=== PATIENT | female | born 1985 | race Caucasian/White ===

== ENCOUNTER → 2016-07-25 | Day surgery (SDC) | payer OTHER ==
[~2016-07-25] MED LIST: ALLEGRA ALLERG180 MG PO; AUGMENTIN TAB875 MG PO; BENTYL 20MG TAB20 MG PO; DIFLUCAN200 MG PO; DULERA 200 MCG8.8 GM INH; DYMISTA NASAL S23 GM; FLEXERIL 10 MG10 MG PO; LORTAB ELIXIR 715 ML PO; METFORMIN HCL1000 MG PO; NEURONTIN 300300 MG PO; NORCO 7.5-3251 EACH PO; PHENERGAN 25 MG25 M1 PO; PROPRANOLOL HCL20 MG PO; SINGULAIR10 MG PO; SPIRONOLACTONE100 MG PO; SULINDAC200 MG PO; VENTOLIN/PROVE0.5 ML INH
== END | disposition home or self-care (01) ==
LOC: OR 06:39
PROVIDERS: Otolaryngology
PROC: 099Q4ZZ Drainage of Right Maxillary Sinus, Percutaneous Endoscopic Approach (ICD-10-PCS; 2016-07-25)
PROC: 09BL4ZZ Excision of Nasal Turbinate, Percutaneous Endoscopic Approach (ICD-10-PCS; 2016-07-25)
PROC: 09SM0ZZ Reposition Nasal Septum, Open Approach (ICD-10-PCS; principal; 2016-07-25 11:15)
PROC: 09TU4ZZ Resection of Right Ethmoid Sinus, Percutaneous Endoscopic Approach (ICD-10-PCS; 2016-07-25 11:15)
PROC: 09TV4ZZ Resection of Left Ethmoid Sinus, Percutaneous Endoscopic Approach (ICD-10-PCS; 2016-07-25 11:15)
PROC: 099R4ZZ Drainage of Left Maxillary Sinus, Percutaneous Endoscopic Approach (ICD-10-PCS; 2016-07-25 11:15)
DX: J32.9 Chronic sinusitis, unspecified (principal); J34.2 Deviated nasal septum; J34.3 Hypertrophy of nasal turbinates; E66.9 Obesity, unspecified; J45.909 Unspecified asthma, uncomplicated; K21.9 Gastro-esophageal reflux disease without esophagitis; K76.0 Fatty (change of) liver, not elsewhere classified; E11.40 Type 2 diabetes mellitus with diabetic neuropathy, unspecified; G43.909 Migraine, unspecified, not intractable, without status migrainosus; M19.90 Unspecified osteoarthritis, unspecified site; Z98.818 Other dental procedure status; Z79.899 Other long term (current) drug therapy; Z79.82 Long term (current) use of aspirin; Z88.6 Allergy status to analgesic agent; Z87.19 Personal history of other diseases of the digestive system; Z82.49 Family history of ischemic heart disease and other diseases of the circulatory system; Z83.3 Family history of diabetes mellitus
CPT/HCPCS: 84703; C1726; J0171; J0295; J1100; J1642; J2405; J2710; J3010; J7050; J7120

== ENCOUNTER → 2016-08-01 | Outpatient (CLI) | payer OTHER | LOC: OPSV 08:30 | DX: Z45.89 Encounter for adjustment and management of other implanted devices (principal); D83.9 Common variable immunodeficiency, unspecified | CPT/HCPCS: 96365; 96366; J1561; J1642 ==

== ENCOUNTER → 2016-08-15 | Outpatient (CLI) | payer OTHER | LOC: OPSV 08:30 | DX: Z45.89 Encounter for adjustment and management of other implanted devices (principal); D83.9 Common variable immunodeficiency, unspecified | CPT/HCPCS: 96365; 96366; J1561; J1642 ==

== ENCOUNTER → 2016-08-29 | Outpatient (CLI) | payer OTHER ==
[~2016-08-29] VITALS: Ht 177.8 cm; Wt 166.5 kg
== END ==
LOC: OPSV 08:30
DX: Z45.89 Encounter for adjustment and management of other implanted devices (principal); D83.9 Common variable immunodeficiency, unspecified
CPT/HCPCS: 96365; 96366; J1561; J1642

== ENCOUNTER → 2016-09-12 | Outpatient (CLI) | payer OTHER ==
[~2016-09-12] VITALS: Ht 177.8 cm; Wt 166.5 kg
== END ==
LOC: OPSV 07:28
DX: Z45.89 Encounter for adjustment and management of other implanted devices (principal); D83.9 Common variable immunodeficiency, unspecified
CPT/HCPCS: 96365; 96366; J1568; J1572

== ENCOUNTER → 2016-09-26 | Outpatient (CLI) | payer OTHER ==
[~2016-09-26] VITALS: Ht 177.8 cm; Wt 166.5 kg
== END ==
LOC: OPSV 08:30
DX: Z45.89 Encounter for adjustment and management of other implanted devices (principal); D83.9 Common variable immunodeficiency, unspecified
CPT/HCPCS: 96365; 96366; J1568; J1642

== ENCOUNTER → 2016-10-10 | Outpatient (CLI) | payer OTHER ==
[~2016-10-10] VITALS: Ht 177.8 cm; Wt 166.5 kg
== END ==
LOC: OPSV 08:30
DX: D83.9 Common variable immunodeficiency, unspecified (principal)
CPT/HCPCS: 96365; 96366; J1568; J1642

== ENCOUNTER → 2016-10-25 | Outpatient (CLI) | payer OTHER ==
[~2016-10-25] VITALS: Ht 177.8 cm; Wt 166.5 kg
== END ==
LOC: OPSV 08:25
DX: D83.9 Common variable immunodeficiency, unspecified (principal)
CPT/HCPCS: 96365; 96366; J1568; J1642

== ENCOUNTER → 2016-11-05 | Outpatient (CLI) | payer OTHER | LOC: SLEEP 10:28 | DX: G47.33 Obstructive sleep apnea (adult) (pediatric) (principal) | CPT/HCPCS: 95810 ==

== ENCOUNTER → 2016-11-07 | Outpatient (CLI) | payer OTHER | LOC: OPSV 08:30 | DX: D83.9 Common variable immunodeficiency, unspecified (principal) | CPT/HCPCS: 96365; 96366; J1568; J1642 ==

== ENCOUNTER → 2016-11-21 | Outpatient (CLI) | payer MEDICARE, OTHER ==
[~2016-11-21] VITALS: Ht 177.8 cm; Wt 166.5 kg
== END ==
LOC: OPSV 08:28
DX: Z45.89 Encounter for adjustment and management of other implanted devices (principal); D83.9 Common variable immunodeficiency, unspecified
CPT/HCPCS: 96365; 96366; J1568; J1642

== ENCOUNTER → 2020-06-11 | Outpatient (CLI) | payer MEDICARE, OTHER ==
[~2020-06-11] VITALS: Ht 177.8 cm; Wt 183.7 kg
[~2020-06-11] MED LIST changes: +ZOFRAN4 MG PO
[2020-06-12 17:13] LABS: A/G RATIO 1.1 (0.7-1.7); ALBUMIN 2.2 g/dL (2.9-4.4); ALPHA-1-GLOBULIN 0.1 g/dL (0.0-0.4); ALPHA-2-GLOBULIN 0.7 g/dL (0.4-1.0); BETA GLOBULIN 0.7 g/dL (0.7-1.3); GAMMA GLOBULIN 0.6 g/dL (0.4-1.8); M-SPIKE Not Observed g/dL (Not Observed); PROTEIN, TOTAL, SERUM 4.2 g/dL (6.0-8.5)
== END ==
LOC: OPSV 08:51
PROVIDERS: Internal Medicine Pulmonary Disease
DX: R79.82 Elevated C-reactive protein (CRP) (principal); R70.0 Elevated erythrocyte sedimentation rate; D83.9 Common variable immunodeficiency, unspecified; E66.9 Obesity, unspecified
CPT/HCPCS: 36591; 83516; 83520; 83615; 84155; 84156; 84165; 84166; 84439; 84443; 85652; 86140; 86335; 96365; 96366; J1568; J1642

== ENCOUNTER → 2020-06-24 | Outpatient (CLI) | payer MEDICARE, OTHER ==
[~2020-06-24] VITALS: Ht 177.8 cm; Wt 183.7 kg
== END ==
LOC: OPSV 08:59
DX: D83.9 Common variable immunodeficiency, unspecified (principal)
CPT/HCPCS: 96365; 96366; 96375; J1568; J1642

== ENCOUNTER → 2020-07-07 | Outpatient (CLI) | payer MEDICARE ==
[~2020-07-07] VITALS: Ht 177.8 cm; Wt 183.7 kg
== END ==
LOC: OPSV 08:55
DX: D83.9 Common variable immunodeficiency, unspecified (principal)
CPT/HCPCS: 96365; 96366; 96375; J1568; J1642

== ENCOUNTER → 2020-07-21 | Outpatient (CLI) | payer MEDICARE ==
[~2020-07-21] VITALS: Ht 177.8 cm; Wt 183.7 kg
[2020-07-22 12:15] LABS: HBSAG SCREEN Negative (Negative); HCV AB <0.1 (0.0-0.9)
[2020-07-22 13:10] LABS: CREATININE, URINE 63.6 mg/dL (Not Estab.)
== END ==
LOC: OPSV 08:53
PROVIDERS: Internal Medicine
DX: R79.82 Elevated C-reactive protein (CRP) (principal); R70.0 Elevated erythrocyte sedimentation rate; D83.9 Common variable immunodeficiency, unspecified; R77.8 Other specified abnormalities of plasma proteins; Z11.59 Encounter for screening for other viral diseases
CPT/HCPCS: 36591; 80076; 82043; 82570; 82784; 83883; 84155; 84156; 84165; 86334; 86704; 86803; 87340; 96365; 96366; 96375; J1568; J1642

== ENCOUNTER → 2020-08-04 | Outpatient (CLI) | payer MEDICARE ==
[~2020-08-04] VITALS: Ht 177.8 cm; Wt 183.7 kg
== END ==
LOC: OPSV 09:00
DX: D83.9 Common variable immunodeficiency, unspecified (principal)
CPT/HCPCS: 96365; 96366; 96375; J1568; J1642

== ENCOUNTER → 2020-08-24 | Outpatient (CLI) | payer MEDICARE ==
[~2020-08-24] VITALS: Ht 177.8 cm; Wt 183.7 kg
== END ==
LOC: OPSV 08:52
DX: D83.9 Common variable immunodeficiency, unspecified (principal)
CPT/HCPCS: 96365; 96366; 96375; J1568; J1642

== ENCOUNTER → 2020-09-07 | Outpatient (CLI) | payer MEDICARE ==
[~2020-09-07] VITALS: Ht 177.8 cm; Wt 183.7 kg
== END ==
LOC: OPSV 08:46
DX: D83.9 Common variable immunodeficiency, unspecified (principal)
CPT/HCPCS: 96365; 96366; J1568; J1642

== ENCOUNTER → 2020-09-21 | Outpatient (CLI) | payer MEDICARE ==
[~2020-09-21] VITALS: Ht 177.8 cm; Wt 183.7 kg
== END ==
LOC: OPSV 09:00
DX: D83.9 Common variable immunodeficiency, unspecified (principal)
CPT/HCPCS: 96365; 96366; 96375; J1568; J1642

== ENCOUNTER → 2020-10-05 | Outpatient (CLI) | payer MEDICARE ==
[~2020-10-05] VITALS: Ht 177.8 cm; Wt 183.7 kg
== END ==
LOC: OPSV 09:00
DX: D83.9 Common variable immunodeficiency, unspecified (principal)
CPT/HCPCS: 96365; 96366; J1568; J1642

== ENCOUNTER → 2020-11-02 | Outpatient (CLI) | payer MEDICARE ==
[~2020-11-02] VITALS: Ht 177.8 cm; Wt 183.7 kg
== END ==
LOC: OPSV 08:29
DX: D83.9 Common variable immunodeficiency, unspecified (principal)
CPT/HCPCS: 96365; 96366; 96374; 96375; J1568; J1642

== ENCOUNTER → 2020-11-19 | Outpatient (CLI) | payer MEDICARE ==
[~2020-11-19] VITALS: Ht 177.8 cm; Wt 183.7 kg
== END ==
LOC: OPSV 07:54
DX: D83.9 Common variable immunodeficiency, unspecified (principal)
CPT/HCPCS: 96365; 96366; 96375; J1568

== ENCOUNTER → 2020-12-03 | Outpatient (CLI) | payer MEDICARE ==
[~2020-12-03] VITALS: Ht 177.8 cm; Wt 183.7 kg
== END ==
LOC: OPSV 07:59
DX: D83.9 Common variable immunodeficiency, unspecified (principal)
CPT/HCPCS: 96365; 96366; J1568; J1642

== ENCOUNTER → 2020-12-17 | Outpatient (CLI) | payer MEDICARE ==
[~2020-12-17] VITALS: Ht 177.8 cm; Wt 183.7 kg
== END ==
LOC: OPSV 08:00
DX: D83.9 Common variable immunodeficiency, unspecified (principal)
CPT/HCPCS: 96365; 96366; 96375; J1568; J1642

== ENCOUNTER → 2020-12-31 | Outpatient (CLI) | payer MEDICARE ==
[~2020-12-31] VITALS: Ht 177.8 cm; Wt 183.7 kg
== END ==
LOC: OPSV 08:00
DX: D83.9 Common variable immunodeficiency, unspecified (principal)
CPT/HCPCS: 96365; 96366; 96375; J1568; J1642

== ENCOUNTER → 2021-01-14 | Outpatient (CLI) | payer MEDICARE, OTHER ==
[~2021-01-14] VITALS: Ht 177.8 cm; Wt 183.7 kg
== END ==
LOC: OPSV 08:06
DX: D83.9 Common variable immunodeficiency, unspecified (principal)
CPT/HCPCS: 96365; 96366; J1568; J1642

== ENCOUNTER → 2021-01-28 | Outpatient (CLI) | payer MEDICARE ==
[~2021-01-28] VITALS: Ht 177.8 cm; Wt 183.7 kg
== END ==
LOC: OPSV 08:00
DX: D83.9 Common variable immunodeficiency, unspecified (principal)
CPT/HCPCS: 96365; 96366; 96375; J1568; J1642

== ENCOUNTER → 2021-02-11 | Outpatient (CLI) | payer MEDICARE, OTHER ==
[~2021-02-11] VITALS: Ht 177.8 cm; Wt 83.5 kg
== END ==
LOC: OPSV 08:00
DX: D83.9 Common variable immunodeficiency, unspecified (principal)
CPT/HCPCS: 96365; 96366; 96375; J1568; J1642

== ENCOUNTER → 2021-02-25 | Outpatient (CLI) | payer MEDICARE ==
[~2021-02-25] VITALS: Ht 177.8 cm; Wt 183.7 kg
== END ==
LOC: OPSV 08:00
DX: D83.9 Common variable immunodeficiency, unspecified (principal)
CPT/HCPCS: 96365; 96366; J1568; J1642

== ENCOUNTER → 2021-03-11 | Outpatient (CLI) | payer MEDICARE ==
[~2021-03-11] VITALS: Ht 177.8 cm; Wt 183.7 kg
== END ==
LOC: OPSV 07:57
DX: D83.9 Common variable immunodeficiency, unspecified (principal)
CPT/HCPCS: 96365; 96366; 96375; J1568; J1642

== ENCOUNTER → 2021-04-01 | Outpatient (CLI) | payer MEDICARE | LOC: OPSV 03-25 10:00 | DX: D83.9 Common variable immunodeficiency, unspecified (principal) | CPT/HCPCS: 96365; 96366; 96375; J1568; J1642 ==

== ENCOUNTER 2021-04-04 10:20 | Emergency (ER) | payer MEDICARE ==
[2021-04-04 11:39] LABS: HEMOGLOBIN 13.4 gm/dl (12.3-15.3); RED BLOOD COUNT 5.2 M/UL (4.00-5.10); WHITE BLOOD COUNT 9.7 K/UL (4.5-11.0)
[2021-04-04 11:50] LABS: BUN/CREATININE RATIO 21 (0-10)
== END 2021-04-04 15:13 | disposition home or self-care (01) ==
LOC: ER1 10:20
PROVIDERS: Emergency Medicine
DX: R56.9 Unspecified convulsions (principal); E66.01 Morbid (severe) obesity due to excess calories
CPT/HCPCS: 70450; 80053; 84703; 85025; 93005; 99285; J2550

== ENCOUNTER → 2021-04-15 | Outpatient (CLI) | payer MEDICARE | LOC: OPSV 07:56 | DX: D83.9 Common variable immunodeficiency, unspecified (principal) | CPT/HCPCS: 96365; 96366; J1568; J1642 ==

== ENCOUNTER → 2021-04-29 | Outpatient (CLI) | payer MEDICARE ==
[~2021-04-29] VITALS: Ht 177.8 cm; Wt 183.7 kg
== END ==
LOC: OPSV 08:00
DX: D83.9 Common variable immunodeficiency, unspecified (principal)
CPT/HCPCS: 96365; 96366; J1568; J1642

== ENCOUNTER → 2021-05-13 | Outpatient (CLI) | payer MEDICARE ==
[~2021-05-13] VITALS: Ht 177.8 cm; Wt 183.7 kg
== END ==
LOC: OPSV 08:00
DX: Z00.00 Encounter for general adult medical examination without abnormal findings (principal); D83.9 Common variable immunodeficiency, unspecified
CPT/HCPCS: 82565; 84520; 96365; 96366; 96375; J1568; J1642

== ENCOUNTER → 2021-05-26 | Outpatient (CLI) | payer MEDICARE ==
[~2021-05-26] VITALS: Ht 177.8 cm; Wt 183.7 kg
== END ==
LOC: OPSV 05-25 08:00
DX: D83.9 Common variable immunodeficiency, unspecified (principal)
CPT/HCPCS: 96365; 96366; J1568; J1642

== ENCOUNTER → 2021-06-10 | Outpatient (CLI) | payer MEDICARE | LOC: OPSV 08:17 | DX: D83.9 Common variable immunodeficiency, unspecified (principal) | CPT/HCPCS: 96365; 96366; J1568; J1642 ==

== ENCOUNTER → 2021-06-25 | Outpatient (CLI) | payer MEDICARE | LOC: OPSV 08:00 | DX: D83.9 Common variable immunodeficiency, unspecified (principal) | CPT/HCPCS: 96365; 96366; 96375; J1568; J1642 ==

== ENCOUNTER → 2021-07-08 | Outpatient (CLI) | payer MEDICARE ==
[~2021-07-08] VITALS: Ht 177.8 cm; Wt 183.7 kg
== END ==
LOC: OPSV 08:12
DX: D83.9 Common variable immunodeficiency, unspecified (principal)
CPT/HCPCS: 96365; 96366; J1568; J1642

== ENCOUNTER → 2021-07-22 | Outpatient (CLI) | payer MEDICARE ==
[~2021-07-22] VITALS: Ht 177.8 cm; Wt 183.7 kg
== END ==
LOC: OPSV 08:15
DX: D83.9 Common variable immunodeficiency, unspecified (principal)
CPT/HCPCS: 96365; 96366; J1568; J1642

== ENCOUNTER → 2021-08-05 | Outpatient (CLI) | payer MEDICARE ==
[~2021-08-05] VITALS: Ht 177.8 cm; Wt 183.7 kg
== END ==
LOC: OPSV 08:07
DX: D83.9 Common variable immunodeficiency, unspecified (principal)
CPT/HCPCS: 96365; 96366; J1568; J1642

== ENCOUNTER → 2021-08-19 | Outpatient (CLI) | payer MEDICARE | LOC: OPSV 09:00 | DX: D83.9 Common variable immunodeficiency, unspecified (principal) | CPT/HCPCS: 96365; 96366; J1568; J1642 ==

== ENCOUNTER → 2021-09-16 | Outpatient (CLI) | payer MEDICARE ==
[~2021-09-16] VITALS: Ht 177.8 cm; Wt 183.7 kg
== END ==
LOC: OPSV 08:00
DX: D83.9 Common variable immunodeficiency, unspecified (principal)
CPT/HCPCS: 96365; 96366; J1568; J1642